=== PATIENT | female | born 1990 | race Asian ===

== ENCOUNTER → 2017-09-06 | Outpatient (CLI) | payer OTHER | END | disposition home or self-care (01) | LOC: C.MAMM 15:35 | PROVIDERS: ATTEND Registered Nurse | DX: M85.88 Other specified disorders of bone density and structure, other site (principal); M85.851 Other specified disorders of bone density and structure, right thigh; M85.852 Other specified disorders of bone density and structure, left thigh; M32.9 Systemic lupus erythematosus, unspecified; Z79.52 Long term (current) use of systemic steroids ==